=== PATIENT | female | born 1955 | race Caucasian/White ===

== ENCOUNTER → 2019-12-23 | Outpatient (CLI) | payer BC ==
[~2019-12-23] MED LIST: AMLO-150 PO; ASPI-650 PO
== END | disposition home or self-care (01) ==
LOC: CFH 09:30
PROVIDERS: ATTEND Family Medicine
DX: M25.461 Effusion, right knee (principal); M25.761 Osteophyte, right knee

== ENCOUNTER 2020-11-22 11:02 | Outpatient (CLI) | payer MEDICARE, BC ==
[~2020-11-22 11:02] MED LIST changes: -ASPI-650 PO; +ASPI325T20 PO
[2020-11-22 11:50] LABS: FREE T4 (FREE THYROXINE) 1.37 ng/dL (0.76-1.46)
== END 2020-11-22 23:59 | disposition home or self-care (01) ==
LOC: LAB 11:02
PROVIDERS: ATTEND Internal Medicine Gastroenterology
DX: D13.1 Benign neoplasm of stomach (principal); D37.1 Neoplasm of uncertain behavior of stomach; R74.8 Abnormal levels of other serum enzymes; R53.83 Other fatigue; K21.9 Gastro-esophageal reflux disease without esophagitis; R13.19 Other dysphagia; R94.5 Abnormal results of liver function studies; K57.80 Diverticulitis of intestine, part unspecified, with perforation and abscess without bleeding
CPT/HCPCS: 36415; 82728; 83520; 83540; 83550; 84439; 84443; 86704; 86803; 87340